=== PATIENT | male | born 1935 | race Caucasian/White ===

== ENCOUNTER 2021-10-12 16:28 | Inpatient (IN) | payer MEDICARE, SELFPAY ==
[~2021-10-12] VITALS: Ht 167.6 cm; Wt 70.1 kg
[2021-10-12 16:28] VITALS: BP_SYST 137
[2021-10-12] MEDS ORDERED: LIP10 PO (17:11)
[2021-10-12] MEDS ORDERED: CLON0.5T4 PO (17:13)
[2021-10-12] MEDS ORDERED: SERT25TA77 PO (17:13)
[2021-10-12] MEDS ORDERED: ASPI-1155 PO (17:14)
[2021-10-12] MEDS ORDERED: ASPI-989 PO (17:14)
[2021-10-12] MEDS ORDERED: LISI20TA PO (17:16)
[2021-10-12] MEDS ORDERED: MEMA10TA PO (17:17)
[2021-10-12] MEDS ORDERED: SER25 PO (17:18)
[2021-10-12] MEDS ORDERED: LATA7.5D OP (17:18)
[2021-10-12] MEDS ORDERED: HALOPERIDOL LACTATE 5 MG/ML VIAL ONE (17:26)
[2021-10-12] MEDS ORDERED: HALOPERIDOL LACTATE 5 MG/ML VIAL IVP ONE ×2 (17:30→20:15)
[2021-10-12 17:31] LABS: BASOPHILS # (AUTO) 0.1 K/uL (0.0-0.2); BASOPHILS % (AUTO) 0.6 % (0.0-2.0); EOSINOPHILS # (AUTO) 0.7 K/uL (0.0-0.4); EOSINOPHILS % (AUTO) 8.4 % (0.0-4.0); HEMATOCRIT 38.7 % (36-54); HEMOGLOBIN 13.3 g/dL (14.0-18.0); LYMPHOCYTES # (AUTO) 0.9 K/uL (1.0-5.5); LYMPHOCYTES % (AUTO) 10.6 % (20.5-51.5); MEAN CORPUSCULAR HEMOGLOBIN 34 pg (27-31); MEAN CORPUSCULAR HGB CONC 34 % (32-36); MEAN CORPUSCULAR VOLUME 98 fL (79.0-98.0); MONOCYTES # (AUTO) 0.3 K/uL (0.0-1.0); MONOCYTES % (AUTO) 3.5 % (1.7-9.3); NEUTROPHILS # (AUTO) 6.5 K/uL (1.8-7.7); NEUTROPHILS % (AUTO) 76.9 % (40.0-70.0); PLATELET COUNT (AUTO) 299 K/uL (130-430); RED BLOOD CELL COUNT(AUTO) 3.97 MIL/uL (4.2-6.2); RED CELL DISTRIBUTION WIDTH 13.4 % (9.0-15.0); WHITE BLOOD COUNT (AUTO) 8.5 K/uL (4.8-10.8)
[2021-10-12] MEDS ORDERED: ONDANSETRON HCL 4 MG/2 ML VIAL ONE (17:36)
[2021-10-12] MEDS ORDERED: MORPHINE 4 MG INJ. 4 MG/ML VIAL ONE (17:36)
[2021-10-12 17:43] LABS: ANION GAP 10 (5-15); CALCIUM 9.3 mg/dL (8.4-11.0); CHLORIDE 102 mmol/L (98-107); CREATININE 1.26 mg/dL (0.55-1.30); GLUCOSE 110 mg/dL (70-99); POTASSIUM 3.6 mmol/L (3.5-5.1); SODIUM SERUM 139 mmol/L (136-145); UREA NITROGEN, BLOOD 17 mg/dL (8-21)
[2021-10-12] MEDS ORDERED: ONDANSETRON HCL 4 MG/2 ML VIAL IVP ONE (17:45)
[2021-10-12] MEDS ORDERED: MORPHINE 4 MG INJ. 4 MG/ML VIAL IVP ONE (17:45)
[2021-10-12 17:51] LABS: ALANINE AMINOTRANSFERASE 22 U/L (12-78); ALBUMIN 3.7 g/dL (3.4-4.8); ASPARTATE AMINOTRANSFERASE 21 U/L (10-37); LIPASE 71 U/L (73-393); TOTAL BILIRUBIN 0.3 mg/dL (0.0-1.0)
[2021-10-12] MEDS ORDERED: MIDAZOLAM HCL 5 MG/5 ML VIAL ONE (17:58)
[2021-10-12] MEDS ORDERED: MIDAZOLAM HCL 5 MG/5 ML VIAL IVP ONE (18:00)
[2021-10-12 18:04] LABS: BILIRUBIN,DIRECT 0.1 mg/dL (0.0-0.3)
[2021-10-12] MEDS ORDERED: DIPHENHYDRAMINE INJ 50 MG/ML VIAL ONE (18:37)
[2021-10-12 22:30] VITALS: BP_SYST 133
[2021-10-12] MEDS ORDERED: HYDROcodone/ACETAMIN 10-325 MG TAB PO PRN (22:30)
[2021-10-12] MEDS ORDERED: HYDROcodone/ACETAMIN 5-325 MG TAB (NORCO/ VICODIN) PO PRN (22:30)
[2021-10-12] MEDS ORDERED: ACETAMINOPHEN 325 MG TABLET PO PRN (22:30)
[2021-10-12] MEDS ORDERED: NALOXONE HCL 0.4 MG/ML AMP (NARCAN) IVP PRN ×2 (22:30)
[2021-10-12] MEDS ORDERED: ONDANSETRON HCL 4 MG/2 ML VIAL IVP PRN (22:30)
[2021-10-12] MEDS: LORazepam 2 MG/ML VIAL IVP PRN (23:57)
[2021-10-13 04:00] VITALS: BP_SYST 112
[2021-10-13] MEDS: NORMAL SALINE 5 ML DISP.SYRIN IVF SCH ×3 (05:34→20:53)
[2021-10-13] MEDS ORDERED: NORMAL SALINE 5 ML DISP.SYRIN IVF SCH (06:00)
[2021-10-13 07:01] LABS: BASOPHILS % (AUTO) 0.5 % (0.0-2.0); EOSINOPHILS # (AUTO) 0.2 K/uL (0.0-0.4); EOSINOPHILS % (AUTO) 3.2 % (0.0-4.0); HEMATOCRIT 35.1 % (36-54); LYMPHOCYTES # (AUTO) 0.7 K/uL (1.0-5.5); LYMPHOCYTES % (AUTO) 8.9 % (20.5-51.5); MEAN CORPUSCULAR HEMOGLOBIN 33 pg (27-31); MEAN CORPUSCULAR HGB CONC 34 % (32-36); MEAN CORPUSCULAR VOLUME 97 fL (79.0-98.0); MONOCYTES # (AUTO) 0.3 K/uL (0.0-1.0); NEUTROPHILS # (AUTO) 6.5 K/uL (1.8-7.7); NEUTROPHILS % (AUTO) 83.4 % (40.0-70.0); PLATELET COUNT (AUTO) 283 K/uL (130-430); RED BLOOD CELL COUNT(AUTO) 3.62 MIL/uL (4.2-6.2); RED CELL DISTRIBUTION WIDTH 13.5 % (9.0-15.0); WHITE BLOOD COUNT (AUTO) 7.8 K/uL (4.8-10.8)
[2021-10-13 07:36] LABS: ANION GAP 10 (5-15); CALCIUM 8.3 mg/dL (8.4-11.0); CHLORIDE 104 mmol/L (98-107); CREATININE 1.15 mg/dL (0.55-1.30); GLUCOSE 117 mg/dL (70-99); PHOSPHORUS 2.7 mg/dL (2.7-4.5); POTASSIUM 3.9 mmol/L (3.5-5.1); SODIUM SERUM 138 mmol/L (136-145); UREA NITROGEN, BLOOD 15 mg/dL (8-21)
[2021-10-13 08:00] VITALS: BP_SYST 113
[2021-10-13] MEDS: LORazepam 2 MG/ML VIAL IVP PRN ×3 (08:14→17:29)
[2021-10-13] MEDS ORDERED: QUEtiapine FUMARATE 25 MG TABLET PO SCH (09:00)
[2021-10-13] MEDS ORDERED: ASPIRIN 81 MG TABLET(ECOTRIN) ONE (09:25)
[2021-10-13] MEDS: clonazePAM 0.5 MG TABLET PO SCH (09:28)
[2021-10-13] MEDS: ATORVASTATIN 10 MG TABLET PO SCH (09:28)
[2021-10-13] MEDS: SERTRALINE HCL 50 MG TABLET PO SCH (09:28)
[2021-10-13] MEDS: MEMANTINE HCL 5 MG TABLET PO SCH ×2 (09:28→20:53)
[2021-10-13] MEDS: lisinopriL 5 MG TABLET PO SCH (09:31)
[2021-10-13] MEDS: ASPIRIN 81 MG TAB.CHEW PO SCH (09:31)
[2021-10-13 11:19] VITALS: BP_SYST 106
[2021-10-13 15:31] VITALS: BP_SYST 113
[2021-10-13] MEDS: LATANOPROST 2.5 ML DROPS (XALATAN) OP SCH (17:28)
[2021-10-13 19:00] VITALS: BP_SYST 132
[2021-10-13 20:00] VITALS: BP_SYST 132
[2021-10-13] MEDS: QUEtiapine FUMARATE 25 MG TABLET PO SCH (20:52)
[2021-10-14 00:10] VITALS: BP_SYST 148
[2021-10-14] MEDS: NORMAL SALINE 5 ML DISP.SYRIN IVF SCH ×3 (06:16→21:19)
[2021-10-14 07:22] LABS: BASOPHILS % (AUTO) 0.7 % (0.0-2.0); EOSINOPHILS # (AUTO) 0.8 K/uL (0.0-0.4); EOSINOPHILS % (AUTO) 10.7 % (0.0-4.0); HEMATOCRIT 37.7 % (36-54); HEMOGLOBIN 12.7 g/dL (14.0-18.0); LYMPHOCYTES # (AUTO) 0.9 K/uL (1.0-5.5); LYMPHOCYTES % (AUTO) 12.7 % (20.5-51.5); MEAN CORPUSCULAR HEMOGLOBIN 33 pg (27-31); MEAN CORPUSCULAR HGB CONC 34 % (32-36); MEAN CORPUSCULAR VOLUME 98 fL (79.0-98.0); MONOCYTES # (AUTO) 0.5 K/uL (0.0-1.0); MONOCYTES % (AUTO) 7.2 % (1.7-9.3); NEUTROPHILS # (AUTO) 5.2 K/uL (1.8-7.7); NEUTROPHILS % (AUTO) 68.7 % (40.0-70.0); PLATELET COUNT (AUTO) 309 K/uL (130-430); RED BLOOD CELL COUNT(AUTO) 3.87 MIL/uL (4.2-6.2); RED CELL DISTRIBUTION WIDTH 13.7 % (9.0-15.0); WHITE BLOOD COUNT (AUTO) 7.5 K/uL (4.8-10.8)
[2021-10-14 08:06] LABS: ALANINE AMINOTRANSFERASE 22 U/L (12-78); ALBUMIN 3.1 g/dL (3.4-4.8); ANION GAP 9 (5-15); ASPARTATE AMINOTRANSFERASE 32 U/L (10-37); CALCIUM 8.3 mg/dL (8.4-11.0); CHLORIDE 103 mmol/L (98-107); GLUCOSE 107 mg/dL (70-99); POTASSIUM 3.6 mmol/L (3.5-5.1); SODIUM SERUM 138 mmol/L (136-145); TOTAL BILIRUBIN 0.6 mg/dL (0.0-1.0); UREA NITROGEN, BLOOD 14 mg/dL (8-21)
[2021-10-14 08:07] VITALS: BP_SYST 137
[2021-10-14] MEDS: ATORVASTATIN 10 MG TABLET PO SCH (08:34)
[2021-10-14] MEDS: clonazePAM 0.5 MG TABLET PO SCH (08:35)
[2021-10-14] MEDS: MEMANTINE HCL 5 MG TABLET PO SCH ×2 (08:35→20:28)
[2021-10-14] MEDS: QUEtiapine FUMARATE 25 MG TABLET PO SCH ×2 (08:35→20:28)
[2021-10-14] MEDS: SERTRALINE HCL 50 MG TABLET PO SCH (08:35)
[2021-10-14] MEDS: lisinopriL 5 MG TABLET PO SCH (08:35)
[2021-10-14] MEDS: ASPIRIN 81 MG TAB.CHEW PO SCH (08:38)
[2021-10-14 16:00] VITALS: BP_SYST 127
[2021-10-14] MEDS: LATANOPROST 2.5 ML DROPS (XALATAN) OP SCH (17:33)
[2021-10-14 20:00] VITALS: BP_SYST 121
[2021-10-15 00:20] VITALS: BP_SYST 141
[2021-10-15] MEDS: NORMAL SALINE 5 ML DISP.SYRIN IVF SCH ×3 (05:46→22:55)
[2021-10-15 06:11] LABS: BASOPHILS # (AUTO) 0.1 K/uL (0.0-0.2); BASOPHILS % (AUTO) 0.9 % (0.0-2.0); EOSINOPHILS # (AUTO) 0.7 K/uL (0.0-0.4); EOSINOPHILS % (AUTO) 10.1 % (0.0-4.0); HEMATOCRIT 36.9 % (36-54); HEMOGLOBIN 12.6 g/dL (14.0-18.0); LYMPHOCYTES # (AUTO) 0.9 K/uL (1.0-5.5); LYMPHOCYTES % (AUTO) 13.1 % (20.5-51.5); MEAN CORPUSCULAR HEMOGLOBIN 33 pg (27-31); MEAN CORPUSCULAR HGB CONC 34 % (32-36); MEAN CORPUSCULAR VOLUME 97 fL (79.0-98.0); MONOCYTES # (AUTO) 0.6 K/uL (0.0-1.0); MONOCYTES % (AUTO) 7.7 % (1.7-9.3); NEUTROPHILS # (AUTO) 4.9 K/uL (1.8-7.7); NEUTROPHILS % (AUTO) 68.2 % (40.0-70.0); PLATELET COUNT (AUTO) 320 K/uL (130-430); RED BLOOD CELL COUNT(AUTO) 3.79 MIL/uL (4.2-6.2); RED CELL DISTRIBUTION WIDTH 13.9 % (9.0-15.0); WHITE BLOOD COUNT (AUTO) 7.2 K/uL (4.8-10.8)
[2021-10-15] MEDS ORDERED: ENOXAPARIN SODIUM 30 MG/0.3 ML SYRINGE SUBCUT ONE (07:00)
[2021-10-15 08:00] VITALS: BP_SYST 135
[2021-10-15] MEDS: ASPIRIN 81 MG TAB.CHEW PO SCH (09:00)
[2021-10-15] MEDS: ATORVASTATIN 10 MG TABLET PO SCH (09:39)
[2021-10-15] MEDS: SERTRALINE HCL 50 MG TABLET PO SCH (09:39)
[2021-10-15] MEDS: lisinopriL 5 MG TABLET PO SCH (09:39)
[2021-10-15] MEDS: ENOXAPARIN SODIUM 40 MG/0.4 ML SYRINGE SUBCUT SCH (09:39)
[2021-10-15] MEDS: clonazePAM 0.5 MG TABLET PO SCH (09:39)
[2021-10-15] MEDS: MEMANTINE HCL 5 MG TABLET PO SCH ×2 (09:39→21:15)
[2021-10-15] MEDS: QUEtiapine FUMARATE 25 MG TABLET PO SCH ×2 (09:40→21:15)
[2021-10-15 16:00] VITALS: BP_SYST 134
[2021-10-15 17:56] LABS: ANION GAP 12 (5-15); CALCIUM 9.2 mg/dL (8.4-11.0); CHLORIDE 104 mmol/L (98-107); CREATININE 1.19 mg/dL (0.55-1.30); GLUCOSE 93 mg/dL (70-99); POTASSIUM 4.1 mmol/L (3.5-5.1); SODIUM SERUM 140 mmol/L (136-145); UREA NITROGEN, BLOOD 16 mg/dL (8-21)
[2021-10-15] MEDS: LATANOPROST 2.5 ML DROPS (XALATAN) OP SCH (18:57)
[2021-10-15 20:00] VITALS: BP_SYST 136
[2021-10-15] MEDS ORDERED: ENOXAPARIN SODIUM 30 MG/0.3 ML SYRINGE SUBCUT SCH (21:00)
[2021-10-15] MEDS: LORazepam 2 MG/ML VIAL IVP PRN (23:32)
[2021-10-16 01:45] VITALS: BP_SYST 116
[2021-10-16] MEDS: NORMAL SALINE 5 ML DISP.SYRIN IVF SCH ×2 (05:20→17:29)
[2021-10-16 08:09] VITALS: BP_SYST 134
[2021-10-16] MEDS: ASPIRIN 81 MG TAB.CHEW PO SCH (10:01)
[2021-10-16] MEDS: SERTRALINE HCL 50 MG TABLET PO SCH (10:01)
[2021-10-16] MEDS: MEMANTINE HCL 5 MG TABLET PO SCH (10:01)
[2021-10-16] MEDS: clonazePAM 0.5 MG TABLET PO SCH (10:01)
[2021-10-16] MEDS: lisinopriL 5 MG TABLET PO SCH (10:02)
[2021-10-16] MEDS: ATORVASTATIN 10 MG TABLET PO SCH (10:02)
[2021-10-16] MEDS: QUEtiapine FUMARATE 25 MG TABLET PO SCH (10:02)
[2021-10-16] MEDS: ENOXAPARIN SODIUM 40 MG/0.4 ML SYRINGE SUBCUT SCH (10:03)
[2021-10-16 12:00] VITALS: BP_SYST 136
[2021-10-16] MEDS: LATANOPROST 2.5 ML DROPS (XALATAN) OP SCH (17:24)
[2021-10-16 17:30] VITALS: BP_SYST 118
[2021-10-16 20:00] VITALS: BP_SYST 115
== END 2021-10-16 21:39 | disposition short-term general hospital (02) | DRG 536 ==
LOC: SED 16:28 → STU 19:55 → SMU 22:19
PROVIDERS: ADMIT Preventive Medicine Preventive Medicine/Occupational Environmental Medicine; ATTEND Preventive Medicine Preventive Medicine/Occupational Environmental Medicine
DX: S72.001A Fracture of unspecified part of neck of right femur, initial encounter for closed fracture (principal); E78.5 Hyperlipidemia, unspecified; F03.90 Unspecified dementia, unspecified severity, without behavioral disturbance, psychotic disturbance, mood disturbance, and anxiety; I10 Essential (primary) hypertension; W18.39XA Other fall on same level, initial encounter; D64.9 Anemia, unspecified; Z20.822 Contact with and (suspected) exposure to COVID-19; Z79.82 Long term (current) use of aspirin; Z79.899 Other long term (current) drug therapy; Z79.01 Long term (current) use of anticoagulants; Y93.89 Activity, other specified; Y92.89 Other specified places as the place of occurrence of the external cause; Y99.8 Other external cause status
CPT/HCPCS: 36415; 70450-TC; 71045; 72170-TC; 72192-TC; 76376; 80048; 80053; 80076; 83690; 83735; 84100; 84484; 85025; 87081; 93005; 96374; 96375; 96376; 97163-GP; 99285; J1200; J1630; J1650; J2060; J2250; J2270; J2405